=== PATIENT | female | born 1990 | race African-American/Black ===

== ENCOUNTER 2017-07-04 23:07 | Emergency (ER) | payer OTHER ==
[~2017-07-04] VITALS: Ht 157.5 cm; Wt 106.6 kg
[~2017-07-04 23:07] MED LIST: IBUPROFEN PO; NAPROXEN PO; NO MEDICATIONS; ROBAXIN500 MG PO; TRI-PREVIFEM T1 EACH PO
== END 2017-07-04 23:30 | disposition left against medical advice (07) ==
LOC: SED 23:07
DX: Z53.21 Procedure and treatment not carried out due to patient leaving prior to being seen by health care provider (principal)

== ENCOUNTER 2017-07-08 15:33 | Emergency (ER) | payer OTHER ==
[~2017-07-08] VITALS: Ht 157.5 cm; Wt 106.6 kg
== END 2017-07-08 17:58 | disposition left against medical advice (07) ==
LOC: SED 15:33
DX: Z53.21 Procedure and treatment not carried out due to patient leaving prior to being seen by health care provider (principal)

== ENCOUNTER 2017-07-08 19:50 | Emergency (ER) | payer SELFPAY ==
[~2017-07-08] VITALS: Ht 157.5 cm; Wt 59.0 kg
--- NOTE | ~2017-07-08 | EKG ---
PATIENT: STARLA LONG UNIT #: [id number] Ventricular Rate: 73 BPM Atrial Rate: 73 BPM P-R Interval: 154 ms QRS Duration: 70 ms Q-T Interval: 360 ms QTC Calculation(Bezet): 396 ms P [place]: 39 degrees Calculated R [place]: 9 degrees Calculated T [place]: 10 degrees Diagnosis Line: Normal sinus rhythm with sinus arrhythmia Diagnosis Line: Poor R wave progression questionable lead position Diagnosis Line: or body habitus Otherwise normal ECG Diagnosis Line: No previous ECGs available Diagnosis Line: Confirmed by AZUCENA ARREDONDO MD ([id number]) on 07/11/2017 Diagnosis Line: 7:32:00 PM INTERPRETING MD: ARNULFO HOOKER
[2017-07-08 21:58] LABS: BASOPHIL% 0.6 % (0-2.5); EOSINOPHIL# 0.2 X10e3 (0-0.7); EOSINOPHIL% 2.3 % (0.0-7.0); HEMATOCRIT 38.5 % (35.0-45.0); HEMOGLOBIN 12.9 gm/dL (12.0-16.0); LYMPHOCYTE# 2.6 X10e3 (1.0-3.5); LYMPHOCYTE% 38.6 % (17.0-45.0); MEAN CELL VOLUME 91.5 FL (83-96); MEAN CORPUSCULAR HEMOGLOBIN 30.6 PG (28-34); MEAN CORPUSCULAR HGB CONC 33.5 g/dL (30-36); MEAN PLATELET VOLUME 8.7 FL (6.5-11.5); MONOCYTE# 0.7 X10e3 (0-1.0); MONOCYTE% 10.5 % (3.0-12.0); NEUTROPHIL# 3.3 X10e3 (1.5-7.1); PLATELET COUNT 177 X10e3 (140-420); RED BLOOD COUNT 4.21 X10e (3.90-5.30); WHITE BLOOD COUNT 6.8 X10e3 (4.0-10.5)
[2017-07-08 22:02] LABS: DIFF IND NO
[2017-07-08 22:05] LABS: POC - CKMB 2.1 ng/mL (0.0-7.9)
[2017-07-08 22:06] LABS: POC - TROPONIN <0.05 ng/mL (<=0.05)
[2017-07-08 22:14] LABS: ALBUMIN SERUM 3.8 g/dL (3.5-5.0); BILIRUBIN, DIRECT 0.1 mg/dL (0.0-0.2); BILIRUBIN,INDIRECT 0.2 mg/dL (0.0-0.9); BILIRUBIN,TOTAL 0.3 mg/dL (0.2-2.0); BUN/CREATININE RATIO 17.5; CREATININE SERUM 0.8 mg/dL (0.6-1.4); POTASSIUM 3.5 mmol/L (3.5-5.1); PROTEIN TOTAL SERUM 7.5 g/dL (6.0-8.3)
== END 2017-07-08 23:24 | disposition home or self-care (01) ==
LOC: SED 19:50
PROVIDERS: Emergency Medicine
DX: R60.9 Edema, unspecified (principal)
CPT/HCPCS: 36415; 80048; 80076; 82553; 83874; 83880; 84443; 84484; 84703; 85025; 93005; 99284